=== PATIENT | male | born 1960 | race American Indian/Alaskan Native ===

== ENCOUNTER 2018-10-28 09:30 | Outpatient (CLI) | payer MEDICARE ==
--- NOTE | 2018-10-28 12:25 | XRay Report ---
XR elbow 3+V RT INDICATION / CLINICAL INFORMATION: RT. ELBOW PAIN. COMPARISON: None available. FINDINGS: BONES/JOINT(S): No acute fracture or subluxation. 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 No ag gressive appearing bone lesions. No significant joint effusion. SOFT TISSUES: No significant abnormality. ADDITIONAL FINDINGS: None. Signer Name: Ramirez Lora MD Signed: 10/28/2018 12:20 PM Workstation Name: [id number]
== END 2018-10-28 09:31 | disposition home or self-care (01) ==
LOC: XRAY 09:30
PROVIDERS: ATTEND Internal Medicine Hematology & Oncology
DX: M19.021 Primary osteoarthritis, right elbow (principal); I10 Essential (primary) hypertension

== ENCOUNTER 2018-12-01 22:58 | Emergency (ER) | payer MEDICARE ==
--- NOTE | 2018-12-02 04:49 | XRay Report ---
CHEST 2 VIEWS INDICATION: sob. COMPARISON: None. FINDINGS: Support devices: None. Heart: Within normal limits. Lungs/Pleura: No acute air space or interstitial disease. No significant pleural effusion. IMPRESSION: No acute findings. Signer Name: Abilio Ahuja MD Signed: 12/02/2018 4:45 AM Workstation Name: [id number]
--- NOTE | 2018-12-02 04:51 | XRay Report ---
CERVICAL SPINE 3 VIEWS. INDICATION / CLINICAL INFORMATION: post fall neck/shoulder pain COMPARISON: None available. FINDINGS: BONES / JOINT(S): Previous ACDF C4-C7. No acute fracture or subluxation. No significant arthritis. SOFT TISSUES: Carotid artery calcification noted. ADDITIONAL FINDINGS: None. Signer Name: Abilio Ahuja MD Signed: 12/02/2018 4:46 AM Workstation Name: [id number]
[2018-12-02 05:28] VITALS: BP 160/84
--- NOTE | 2018-12-02 05:31 | Emergency Department Report ---
ED General Adult HPI - General Chief complaint: Dyspnea/Respdistress Stated complaint: SAQIB Time Seen by Provider: 12/02/18 03:50 Source: patient Mode of arrival: Ambulatory Limitations: No Limitations - History of Present Illness Initial comments: Pt reports slip and fall due to rain on yesterday. States he landed on his back. Denies LOC or headache. Pt reports hx of chronic cervical radiculopathy w/ pain radiating into right shoulder and chronic paresthesias in the right arm. Pt reports neck pain and right shoulder pain from the fall. States takes oxycodone at home. -: days(s) (1) Location: neck, left, upper extremity Severity scale (0 -10): 5 Quality: sharp Consistency: constant Improves with: immobilization Worsens with: movement Associated Symptoms: denies: headaches Treatments Prior to Arrival: other (oxycodone) - Related Data Previous Rx's Medication Instructions Recorded Last Taken Type Naproxen [Naprosyn] 500 mg PO BID #20 tablet 12/02/18 Unknown Rx methOCARBAMOL [Robaxin TAB] 500 mg PO Q8HR PRN #20 tablet 12/02/18 Unknown Rx Allergies Allergy/AdvReac Type Severity Reaction Status Date / Time clarithromycin AdvReac Unknown Unverified 08/01/15 10:59 ED Review of Systems ROS: Stated complaint: SAQIB Other details as noted in HPI Comment: All other systems reviewed and negative Musculoskeletal: as per HPI Neurological: paresthesias. denies: headache, weakness ED Past Medical Hx - Past Medical History Previous Medical History?: No Hx Hypertension: Yes Hx Diabetes: Yes Hx Arthritis: Yes - Surgical History Past Surgical History?: Yes Additional Surgical History: disc fusion. carpal tunnel to right. right ulnar nerve. spinal fusion. - Social History Smoking Status: Never Smoker - Medications Home Medications: Home Medications Medication Instructions Recorded Confirmed Last Taken Type Naproxen [Naprosyn] 500 mg PO BID #20 tablet 12/02/18 Unknown Rx methOCARBAMOL [Robaxin TAB] 500 mg PO Q8HR PRN #20 tablet 12/02/18 Unknown Rx ED Physical Exam - General Limitations: No Limitations General appearance: alert, in no apparent distress - Head Head exam: Present: atraumatic, normocephalic - Eye Eye exam: Present: normal appearance, PERRL, EOMI - ENT ENT exam: Present: mucous membranes moist - Neck Neck exam: Present: tenderness - Respiratory Respiratory exam: Present: normal lung sounds bilaterally. Absent: respiratory distress - Cardiovascular Cardiovascular Exam: Present: regular rate, normal rhythm - GI/Abdominal GI/Abdominal exam: Absent: distended - Extremities Exam Extremities exam: Present: normal inspection, other (normal ROM in right shoulder) - Neurological Exam Neurological exam: Present: alert, oriented X3 - Psychiatric Psychiatric exam: Present: normal affect, normal mood - Skin Skin exam: Present: warm, dry, intact, normal color ED Course Vital Signs 12/01/18 12/02/18 12/02/18 23:51 03:35 03:37 Temperature 98.1 F 97.9 F 97.9 F Pulse Rate 66 60 60 Respiratory 12 16 16 Rate Blood Pressure 157/74 152/70 152/70 O2 Sat by Pulse 99 99 Oximetry 12/02/18 12/02/18 12/02/18 03:46 04:01 04:25 Temperature Pulse Rate Respiratory Rate Blood Pressure 146/68 160/84 O2 Sat by Pulse 98 99 99 Oximetry 12/02/18 12/02/18 12/02/18 04:31 04:45 05:01 Temperature Pulse Rate Respiratory Rate Blood Pressure 153/64 153/64 123/55 O2 Sat by Pulse 97 99 95 Oximetry 12/02/18 05:15 Temperature Pulse Rate Respiratory Rate Blood Pressure 160/84 O2 Sat by Pulse 96 Oximetry ED Medical Decision Making - Radiology Data Radiology results: report reviewed, image reviewed - Differential Diagnosis fracture, sprain Critical care attestation.: If time is entered above; I have spent that time in minutes in the direct care of this critically ill patient, excluding procedure time. ED Disposition Clinical Impression: Cervical radiculopathy, Cervical strain, acute Disposition: DC-01 TO HOME OR SELFCARE Is pt being admited?: No Condition: Stable Instructions: Muscle Strain (ED) Prescriptions: Naproxen [Naprosyn] 500 mg PO BID #20 tablet methOCARBAMOL [Robaxin TAB] 500 mg PO Q8HR PRN #20 tablet PRN Reason: Muscle Spasm Referrals: PRIMARY CARE, [Primary Care Provider] - 3-5 Days EMPERATRIZ AARON MD [Staff Physician] - 3-5 Days Time of Disposition: 05:28
== END 2018-12-02 06:44 | disposition home or self-care (01) ==
LOC: ED 22:58
DX: S16.1XXA Strain of muscle, fascia and tendon at neck level, initial encounter (principal); M54.12 Radiculopathy, cervical region; G89.29 Other chronic pain; I10 Essential (primary) hypertension; E11.9 Type 2 diabetes mellitus without complications; M19.90 Unspecified osteoarthritis, unspecified site; Z88.1 Allergy status to other antibiotic agents; W01.198A Fall on same level from slipping, tripping and stumbling with subsequent striking against other object, initial encounter; Y93.89 Activity, other specified; Y92.89 Other specified places as the place of occurrence of the external cause; Y99.8 Other external cause status
CPT/HCPCS: 71046; 72040; 99283

== ENCOUNTER 2019-06-01 08:02 | Day surgery (SDC) | payer MEDICARE ==
[2019-06-01] MEDS ORDERED: SODIUM CHLORIDE 0.9% 1000 ML 1,000 ML IV SCH (09:15)
--- NOTE | 2019-06-01 09:19 | Anesthesia Consultation ---
Anesthesia Consult and Med Hx Date of service: 06/01/19 - Airway Anesthetic Teeth Evaluation: Poor (denies loose teeth) ROM Head & Neck: Inadequate (restricted extension) Mental/Hyoid Distance: Adequate Mallampati Class: Class III Intubation Access Assessment: Difficult (reports hx difficult intubation requiring awake FOI with most recent surgery) - Pulmonary Exam CTA: Yes - Cardiac Exam Cardiac Exam: RRR - Pre-Operative Health Status ASA Pre-Surgery Classification: ASA3 Proposed Anesthetic Plan: MAC - Pulmonary Hx Smoking: Yes (quit 20 yrs ago) Hx Respiratory Symptoms: No Hx Sleep Apnea: Yes (no CPAP >1 yr) - Cardiovascular System Hx Hypertension: Yes Hx Heart Attack/AMI: No Hx Percutaneous Transluminal Coronary Angioplasty (PTCA): No - Central Nervous System CVA: No - Gastrointestinal Hx Gastroesophageal Reflux Disease: No - Endocrine Hx Renal Disease: No Hx Liver Disease: No Hx Insulin Dependent Diabetes: No Hx Non-Insulin Dependent Diabetes: No Hx Thyroid Disease: No - Other Systems Hx Obesity: Yes (BMI 36)
--- NOTE | 2019-06-01 09:20 | Anesthesia Day of Surgery ---
Anesthesia Day of Surgery - Day of Surgery Patient Examined: Yes Patient H&P Reviewed: Yes Patient is NPO: Yes
[2019-06-01] MEDS ORDERED: propofoL 200 MG/20 ML VIAL IV ONE (09:37)
--- NOTE | 2019-06-01 10:31 | Operative Report ---
Operative Report Operative Report: DOS: 06/01/2019 SURGEON: Wilfrido Abbott MD COLONOSCOPY WITH SNARE POLYPECTOMY REPORT PREOPERATIVE AND POSTOPERATIVE DIAGNOSIS: DESCRIPTION OF PROCEDURE: The colonoscope was passed to the cecum as identified by the ileocecal valve and appendiceal orifice terminal ileum as identified by the ileal tissue. Scope was carefully withdrawn. Retroflexion was performed in the rectum. At the end of procedure, the scope was cleaned using normal technique. Vital signs monitored continuously throughout. SEDATION: Provided by Anesthesiology Services. Quality of the prep was poor COMPLICATIONS: None. ESTIMATED BLOOD LOSS: Minimal FINDINGS: * Moderate amount of semi-liquid stool scattered throughout the entire colon * 5 mm sessile polyp in the transverse colon removed by cold snare polypectomy * 4 mm sessile polyp in the distal rectum removed by cold snare polypectomy * Small internal hemorrhoids * Manger of the exam was normal, though views were limited RECOMMENDATIONS: Repeat colonoscopy 1 year with 2-day prep
[2019-06-01] MEDS ORDERED: WATER FOR IRRIG STERILE 250 ML BOTTLE IR ONE (10:34)
[2019-06-01 11:00] VITALS: BP 121/68
--- NOTE | 2019-06-01 13:18 | Post Anesthesia Evaluation ---
- Post Anesthesia Evaluation Patient Participated: Yes Airway Patent: Yes Stable Respiratory Function: Yes Nausea/Vomiting: No Temp > 96.8F: Yes Pain Manageable: Yes Adequeate Hydration: Yes Anesthesia Complications: No
== END 2019-06-01 08:03 | disposition home or self-care (01) ==
LOC: GIO 08:02
PROVIDERS: ATTEND Student in an Organized Health Care Education/Training Program
DX: Z12.11 Encounter for screening for malignant neoplasm of colon (principal); K64.8 Other hemorrhoids; D12.3 Benign neoplasm of transverse colon; K62.1 Rectal polyp; E78.00 Pure hypercholesterolemia, unspecified; I10 Essential (primary) hypertension; G47.30 Sleep apnea, unspecified; M19.90 Unspecified osteoarthritis, unspecified site; Z88.8 Allergy status to other drugs, medicaments and biological substances; Z79.899 Other long term (current) drug therapy; Z79.84 Long term (current) use of oral hypoglycemic drugs; Z87.891 Personal history of nicotine dependence; Z98.890 Other specified postprocedural states
CPT/HCPCS: 45385; 88305; J2704; J7030